=== PATIENT | female | born 1980 | race Two or more races ===

== ENCOUNTER 2024-01-08 11:36 | Outpatient (CLI) | payer OTHER | END 2024-01-08 11:51 | disposition home or self-care (01) | LOC: SONOGRAMA 11:36 | PROVIDERS: ATTEND Physical Medicine & Rehabilitation Hospice and Palliative Medicine | DX: M25.512 Pain in left shoulder (principal); M75.102 Unspecified rotator cuff tear or rupture of left shoulder, not specified as traumatic ==